=== PATIENT | male | born 1990 | race Caucasian/White ===

== ENCOUNTER 2017-09-21 20:16 | Emergency (ER) | payer MEDICAID ==
[~2017-09-21] VITALS: Ht 180.3 cm; Wt 86.0 kg
[2017-09-21] MEDS ORDERED: ketorolac trometh inj. 60 MG/2 ML VIAL IM ONE (21:15)
[2017-09-21 21:32] VITALS: BP 120/80
== END 2017-09-21 21:33 | disposition home or self-care (01) ==
LOC: ER 20:18
DX: S29.012A Strain of muscle and tendon of back wall of thorax, initial encounter (principal); X58.XXXA Exposure to other specified factors, initial encounter; Y93.89 Activity, other specified; Y92.89 Other specified places as the place of occurrence of the external cause; Y99.8 Other external cause status
CPT/HCPCS: 71101; 96372; 99284; J1885